=== PATIENT | male | born 1935 | race Caucasian/White ===

== ENCOUNTER 2021-07-26 16:03 | Emergency (ER) | payer MEDICARE, SELFPAY ==
[2021-07-26 16:15] VITALS: BP 143/78; PULSE 75; RESP 20; TEMP 36.8; O2SAT 100
--- NOTE | 2021-07-26 16:27 | ED.HEATRA ---
HPI - Head Injury General Chief complaint: Head Injury Stated complaint: head injury Time Seen by Provider: 07/26/21 16:10 Source: patient and family Mode of arrival: ambulatory Limitations: no limitations History of Present Illness HPI Narrative: Mr. Michael is an 86-year-old male patient presenting to the clinic today with complaints of a head injury. He reports he was walking up the basement steps and tripped on one of the steps and hit his head on another step. Has bruising and swelling to the left forehead/scalp with minimal bleeding. He is taking Eliquis. This happened approximately 1 hour ago and his called his neuro provider and they suggested he be evaluated. He denies any dizziness, visual changes, headache, nausea, vomiting, changes in gait, or weakness. He denies any head or neck pain. MD Complaint: head injury and fall Related Data Home Medications Medication Instructions Recorded Confirmed amlodipine 5 mg PO DAILY 07/26/21 07/26/21 apixaban [Eliquis] 5 mg PO DAILY 07/26/21 07/26/21 finasteride 5 mg PO DAILY 07/26/21 07/26/21 lisinopril 40 mg PO DAILY 07/26/21 07/26/21 metoprolol succinate 100 mg PO DAILY 07/26/21 07/26/21 nitroglycerin 0.4 mg SUBLINGUAL DAILY 07/26/21 07/26/21 rosuvastatin 20 mg PO DAILY 07/26/21 07/26/21 tamsulosin 0.4 mg PO DAILY 07/26/21 07/26/21 Allergies Allergy/AdvReac Type Severity Reaction Status Date / Time No Known Allergies Allergy Verified 07/26/21 16:49 Review of Systems Review of Systems: Pertinent positives per HPI. Patient denies any fever, chills, rash, headache, visual changes, dizziness, cough, runny nose, sore throat, shortness of breath, chest pain, palpitations, nausea, vomiting, diarrhea, constipation, abdominal pain, or any urinary issues. PMFSH Comments At the time of my signature, I reviewed and agree with the nursing past medical, surgical, social, and family history. There is no relevant family history pertinent to the patient complaint. Exam Narrative: General: Well-developed, well nourished, in no apparent distress Head: Normocephalic, knotted bruised/purple area the size of a golf ball to the left forehead/scalp with small open area that is oozing some clear fluid. Eyes: Pupils equally round and reactive to light bilaterally, EOM intact, sclera and conjunctive clear, no discharge, lids normal Ears: TMs intact and clear, ear canals clear, no drainage, grossly hearing normal. Nose: Nares patent, no discharge, no inflammation, no sinus tenderness. Mouth: Oropharynx without lesions or masses, good dentition, MMM. Neck: Supple, trachea midline, no enlargement of anterior or posterior cervical nodes, no thyroid masses or goiter palpable. Cardio: Regular rate and rhythm, s1 and s2 normal, no murmur appreciated. Resp: Clear to auscultation bilaterally anteriorly and posteriorly, no rhonchi, rales, wheezing or rubs Neuro: Conscious alert and oriented x3, follows commands appropriately, strong hand grasp bilaterally, muscle strength strong and equal in bilateral upper and lower extremities, patellar reflexes 2+, negative Romberg's, steady gait Course Course Emergency Course: Portions of this record may have been created with voice recognition software. Level of Care: Express Care Visit Vital Signs Vital signs: Vital signs reviewed MDM - Head Injury MDM Narrative Medical decision making narrative: At the time of visit patient is resting comfortably on the exam table. He is conscious alert and oriented x3, has a contusion the size of a golf ball to the left forehead/scalp that is oozing some clear discharge. He is currently taking Eliquis for A. fib. He denies any headache, dizziness, visual changes, nausea, vomiting, or weakness. His neurological exam is normal. I suspect that the patient has a closed head injury with a contusion to the left scalp/forehead. I will have him hold his dose of Eliquis tonight and resume Eliquis tomorrow. Wound was clean
== END 2021-07-26 16:43 | disposition home or self-care (01) ==
PROVIDERS: Emergency Provider Nurse Practitioner Family
DX: S09.90XA Unspecified injury of head, initial encounter (principal); W10.9XXA Fall (on) (from) unspecified stairs and steps, initial encounter; S00.03XA Contusion of scalp, initial encounter; I48.91 Unspecified atrial fibrillation; E78.00 Pure hypercholesterolemia, unspecified; I10 Essential (primary) hypertension; N40.0 Benign prostatic hyperplasia without lower urinary tract symptoms
CPT/HCPCS: 99212; G0463